=== PATIENT | female | born 2000 | race African-American/Black ===

== ENCOUNTER 2019-01-18 14:30 | Emergency (ER) | payer MEDICAID ==
[~2019-01-18] VITALS: Ht 167.6 cm; Wt 57.0 kg
[2019-01-18 15:35] LABS: BASOPHILS % 0.2 % (0.0-2.0); EOSINOPHILS % 0.1 % (0.0-5.0); HEMATOCRIT. 34.7 % (36.0-48.0); HEMOGLOBIN. 11.5 g/dL (12.0-16.0); LYMPHOCYTES % 23.3 % (20.0-50.0); MEAN CORPUSCULAR HEMOGLOBIN 27.4 pg (28.0-32.0); MEAN CORPUSCULAR VOLUME 82.8 fL (81.0-99.0); MEAN PLATELET VOLUME 6.5 fl (7.4-10.4); NEUTROPHILS % 68.4 % (40.0-76.0); PLATELET 192 x1000/uL (130-400); RED BLOOD CELL COUNT 4.19 mill/uL (4.2-5.4); RED CELL DISTRIBUTION WIDTH 13.9 % (11.6-14.6)
[2019-01-18 15:39] LABS: CHLORIDE 105 mEq/L (98-107)
[2019-01-18 16:02] LABS: B-HCG QUANTITATIVE 65399 mIU/mL (<3)
[2019-01-18 18:02] VITALS: BP 110/63
== END 2019-01-18 18:06 | disposition home or self-care (01) ==
LOC: ER 14:30
DX: O20.0 Threatened abortion (principal); Z3A.11 11 weeks gestation of pregnancy; O26.891 Other specified pregnancy related conditions, first trimester; R10.2 Pelvic and perineal pain; R03.0 Elevated blood-pressure reading, without diagnosis of hypertension
CPT/HCPCS: 36415; 76830; 76856; 81025; 84702; 86850; 86900; 99284

== ENCOUNTER 2019-03-13 12:42 | Emergency (ER) | payer MEDICAID ==
[~2019-03-13] VITALS: Ht 172.7 cm; Wt 62.0 kg
[2019-03-13] MEDS ORDERED: SODIUM CHLORIDE 0.9% 1,000 ML IV ONE (15:08)
[2019-03-13] MEDS ORDERED: ACETAMINOPHEN 500MG TABLET PO ONE (15:15)
[2019-03-13] MEDS ORDERED: ACETAMINOPHEN 500MG TABLET PO NR (15:45)
[2019-03-13 16:06] LABS: BASOPHILS % 0.2 % (0.0-2.0); EOSINOPHILS % 0.1 % (0.0-5.0); HEMATOCRIT. 32.9 % (36.0-48.0); HEMOGLOBIN. 10.8 g/dL (12.0-16.0); MEAN CORPUSCULAR HEMOGLOBIN 27.5 pg (28.0-32.0); MEAN CORPUSCULAR VOLUME 83.6 fL (81.0-99.0); MEAN PLATELET VOLUME 6.9 fl (7.4-10.4); MONOCYTES % 8.9 % (2.0-8.0); NEUTROPHILS % 69.8 % (40.0-76.0); PLATELET 191 x1000/uL (130-400); RED BLOOD CELL COUNT 3.93 mill/uL (4.2-5.4); RED CELL DISTRIBUTION WIDTH 13.4 % (11.6-14.6)
[2019-03-13 16:09] LABS: CHLORIDE 107 mEq/L (98-107)
[2019-03-13 17:15] LABS: KETONES URINE 2+ (NEGATIVE); LEUKOCYTE ESTERASE URINE TRACE (NEGATIVE); NITRITE URINE NEGATIVE (NEGATIVE); OCCULT BLOOD URINE NEGATIVE (NEGATIVE); PROTEIN URINE NEGATIVE (NEGATIVE); SPECIFIC GRAVITY URINE 1.011 (1.005-1.030); UROBILINOGEN URINE 0.2 E.U./dL (0.2-1.0)
[2019-03-13 17:17] LABS: CLARITY URINE HAZY (CLEAR); COLOR URINE PALE YELLOW (YELLOW)
[2019-03-13 18:47] VITALS: BP 102/67
== END 2019-03-13 18:49 | disposition home or self-care (01) ==
LOC: ER 12:42 → 8 EST LDRP 14:37 → UNDOADMOB 14:37 → ER 18:49 → CANBEDREQ 20:34
DX: O26.892 Other specified pregnancy related conditions, second trimester (principal); R10.30 Lower abdominal pain, unspecified; O46.92 Antepartum hemorrhage, unspecified, second trimester; Z3A.20 20 weeks gestation of pregnancy; V43.52XA Car driver injured in collision with other type car in traffic accident, initial encounter; Y93.89 Activity, other specified; Y92.410 Unspecified street and highway as the place of occurrence of the external cause; G40.909 Epilepsy, unspecified, not intractable, without status epilepticus
CPT/HCPCS: 36415; 76805; 80053; 81003; 83690; 85025; 85610; 99284; J7030

== ENCOUNTER 2020-02-24 16:36 | Emergency (ER) | payer MEDICAID ==
[~2020-02-24] VITALS: Ht 172.7 cm; Wt 69.0 kg
[2020-02-24 18:18] LABS: BASOPHILS % 0.4 % (0.0-2.0); EOSINOPHILS % 0.1 % (0.0-5.0); HEMATOCRIT. 37.6 % (36.0-48.0); HEMOGLOBIN. 12.7 g/dL (12.0-16.0); LYMPHOCYTES % 19.5 % (20.0-50.0); MEAN CORPUSCULAR HEMOGLOBIN 27.9 pg (28.0-32.0); MEAN CORPUSCULAR VOLUME 82.6 fL (81.0-99.0); MEAN PLATELET VOLUME 7.1 fl (7.4-10.4); MONOCYTES % 8.6 % (2.0-8.0); NEUTROPHILS % 71.4 % (40.0-76.0); PLATELET 191 x1000/uL (130-400); RED BLOOD CELL COUNT 4.55 mill/uL (4.2-5.4); RED CELL DISTRIBUTION WIDTH 13.6 % (11.6-14.6)
[2020-02-24 18:20] LABS: CHLORIDE 108 mEq/L (98-107)
[2020-02-24 18:33] LABS: B-HCG QUANTITATIVE < 1 mIU/mL (<3)
[2020-02-24 19:15] VITALS: BP 126/94
== END 2020-02-24 19:30 | disposition home or self-care (01) ==
LOC: ER 16:36
DX: D27.9 Benign neoplasm of unspecified ovary (principal); R03.0 Elevated blood-pressure reading, without diagnosis of hypertension
CPT/HCPCS: 36415; 80053; 84702; 85025; 86850; 86900; 99283